=== PATIENT | female | born 1955 | race Caucasian/White ===

== ENCOUNTER 2016-11-30 10:53 | Emergency (ER) | payer OTHER, SELFPAY ==
--- NOTE | ~2016-11-30 | CR72 ---
[facility] A Service of [facility] & [facility] RADIOLOGY TEXT RESULTS PATIENT: TALYA TORIBIO LOCATION: [facility] : 57 UNIT #: [id number] AGE: [address]: Pablo Christie MD SEX: F ORDER DR: [id number] [facility] [address] [place], [place] [address] [id number] E MR#: [id number] Acc #: [id number] NAME: TALYA TORIBIO : 1955 SEX: F STUDY DATE/TIME: 11/30/2016 10:27 UNIT: [facility] ROOM: STUDY DESCRIPTION: CR Chest Single View Portable Attending Physician: Pablo Christie M.D. Ordering Physician: Pablo Christie M.D. Primary Care Physician: Stephanie Vale M.D. MEDICAL IMAGING REPORT This report is preliminary unless electronic signature is present EXAM Chest portable 11/30/2016, 10:40 hours. HISTORY 61-year-old with shortness of air, cough and congestion for 5 days. COMPARISON 12/08/2015. FINDINGS Single upright portable view demonstrates normal cardiac, mediastinal and hilar contours. The lungs are hyperinflated. There is a vague nodule in the right upper lung measuring 8 x 10 mm which appears to be new. There is patchy airspace density at the medial right lung base. Right basilar changes are concerning for pneumonia. Suggest followup chest radiographs post-treatment to assess for resolution of the right basilar density and reassess the potential new nodule in the right upper lung. IMPRESSION 1. There is patchy right medial basal airspace density concerning for pneumonia, less likely atelectasis. 2. There is a vague 8 x 10 mm nodule projecting between the posterior right seventh and eighth ribs over the medial margin of the clavicle of the scapula which appears to be new. Developing, suspicious nodule cannot be excluded. Suggest followup of this nodule at the time of followup of the right basilar infiltrate. If this finding persists a chest CT would be warranted. Malignancy cannot be excluded. Dictated by... Talya Torres M.D. THIS IS AN ELECTRONICALLY VERIFIED REPORT STS. [facility] A Service of [facility] & [facility] RADIOLOGY TEXT RESULTS PATIENT: TALYA TORIBIO [id number] 57 UNIT #: [id number] AGE: [address]: Pablo Christie MD SEX: F ORDER DR: Talya Torres M.D. at 12/01/2016 9:38 AM YUAN/ting TD: 11/30/2016 15:48 JOB #: [id number] MEDICAL IMAGING REPORT Page 1 of 1 COPY
[~2016-11-30 10:53] MED LIST: FOSAMAX70 MG PO; OMEPRAZOLE20 M2 PO; PAXIL PO; PAXIL30 MG PO; PAXIL40 MG PO; SYNTHROID112 MCG PO
== END 2016-11-30 11:55 | disposition home or self-care (01) ==
LOC: CED 10:53
DX: J18.9 Pneumonia, unspecified organism (principal); Z79.899 Other long term (current) drug therapy
CPT/HCPCS: 71010; 94640; 99284